=== PATIENT | male | born 1995 | race Caucasian/White ===

== ENCOUNTER 2024-03-27 01:56 | Emergency (ER) | payer OTHER ==
[2024-03-27] MEDS ORDERED: AFRIN NASAL MIST 15 ML BOT ONE (04:14)
== END 2024-03-27 04:57 | disposition home or self-care (01) ==
LOC: EEVIPCON 01:56 → CSHERS 01:56
DX: S02.40CA Maxillary fracture, right side, initial encounter for closed fracture (principal); S02.2XXA Fracture of nasal bones, initial encounter for closed fracture; W01.0XXA Fall on same level from slipping, tripping and stumbling without subsequent striking against object, initial encounter
CPT/HCPCS: 70450; 70486; 76376